=== PATIENT | male | born 1950 | race Caucasian/White ===

== ENCOUNTER 2016-11-12 11:38 | Emergency (ER) | payer BC, OTHER ==
[~2016-11-12] VITALS: Ht 177.8 cm; Wt 106.6 kg
[~2016-11-12 11:38] MED LIST: IBP200T PO; LISI1TAB6 PO; TRM50T PO
[2016-11-12] MEDS ORDERED: LISI-552 (11:53)
[2016-11-12] MEDS ORDERED: HYDR-757 PO (11:58)
[2016-11-12] MEDS ORDERED: AMOX500C2 PO (11:58)
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
[2016-11-12 12:01] VITALS: BP 156/96
== END 2016-11-12 12:01 | disposition home or self-care (01) ==
LOC: EDUNIT# 11:38 → ER 11:40
DX: K02.9 Dental caries, unspecified (principal)
CPT/HCPCS: 99282

== ENCOUNTER → 2019-09-11 | Outpatient (CLI) | payer MEDICARE, OTHER ==
[~2019-09-11] MED LIST changes: +AMOX500C2 PO; +HYDR-4226 PO; +LISI-552
== END ==
LOC: CARD 09:03
PROVIDERS: ATTEND Internal Medicine Cardiovascular Disease
DX: I34.0 Nonrheumatic mitral (valve) insufficiency (principal); I10 Essential (primary) hypertension
CPT/HCPCS: 93306

== ENCOUNTER → 2019-09-12 | Outpatient (CLI) | payer MEDICARE, OTHER ==
[~2019-09-12] VITALS: Ht 177 cm; Wt 95.0 kg
[~2019-09-12] MED LIST changes: +CATHETER FLUSH 10 ML SYR IV PRN; +REGADENOSON 0.4 MG/5 ML SYR (LEXISCAN) IV ONE
[2019-09-12 08:40] VITALS: BP 129/109
[2019-09-12 08:58] VITALS: BP 140/94
--- NOTE | 2019-09-12 20:02 | STRESS TEST ---
DATE OF SERVICE: 09/12/2019 RESTING AND POST REGADENOSON TECHNETIUM-99M TETROFOSMIN SPECT CT IMAGING ORDERING PHYSICIAN: Dr. Dumont. PRIMARY PHYSICIAN: Dr. Pal. CLINICAL DIAGNOSIS: Shortness of breath, hypertension, abnormal electrocardiogram. Baseline images were carried out after injection of 10.68 mCi of technetium-99m Tetrofosmin. This was followed by 0.4 mg regadenoson and 29.9 mCi of technetium-99m Tetrofosmin for stress imaging. The electrocardiogram showed sinus rhythm with right bundle branch block at baseline. The electrocardiogram did not change significantly with the regadenoson infusion. The patient tolerated the procedure well and did not report symptoms. Review of images at rest and following stress does not indicate any distinct perfusion defects consistent with myocardial ischemia or infarction. Some degree of count attenuation is seen in the diaphragmatic wall of the left ventricle, both at rest and following regadenoson infusion. This is likely due to diaphragmatic attenuation. Gated images show normal global left ventricular systolic function with normal regional wall motion, including the diaphragmatic wall of the left ventricle. Left ventricular ejection fraction is calculated to be 76%. Left ventricular end diastolic volume is 54 mL. TID is absent (0.97). CONCLUSIONS: 1. No evidence of any significant myocardial ischemia or infarction on this study. 2. Normal regional wall motion. 3. Normal global left ventricular systolic function with a calculated ejection fraction of 76%. Job ID: [id number] DocumentID: [id number] Dictated Date: 09/12/2019 17:39:29 [employer] Date: 09/12/2019 20:01:47 Dictated By: NARESH DUMONT MD, MA, FACP, FACC,
== END ==
LOC: CARD 07:36
PROVIDERS: ATTEND Internal Medicine Cardiovascular Disease
DX: I10 Essential (primary) hypertension (principal); R06.02 Shortness of breath; R94.31 Abnormal electrocardiogram [ECG] [EKG]; Z79.899 Other long term (current) drug therapy
CPT/HCPCS: 78452; 93017